=== PATIENT | male | born 1975 | race Caucasian/White ===

== ENCOUNTER 2022-09-03 19:11 | Emergency (ER) | payer MEDICAID ==
[~2022-09-03] VITALS: Ht 162.6 cm; Wt 68.6 kg
[2022-09-03 20:18] LABS: COVID AG,FIA SOURCE NASAL SWAB
[2022-09-03] MEDS ORDERED: ACETAMINOPHEN 500 MG TABLET PO ONE (20:30)
[2022-09-03 20:41] LABS: INFLUENZA TYPE A NEGATIVE FOR TYPE A (NEGATIVE); INFLUENZA TYPE B NEGATIVE FOR TYPE B (NEGATIVE)
[2022-09-03] MEDS ORDERED: BENZ-70 PO ×2 (21:00→22:46)
[2022-09-03] MEDS ORDERED: ACET-66 PO (21:00)
[2022-09-03] MEDS ORDERED: IBUP-2070 PO (21:00)
[2022-09-03 21:09] VITALS: BP 118/70
== END 2022-09-03 21:16 | disposition home or self-care (01) ==
LOC: EMS 19:16
DX: J06.9 Acute upper respiratory infection, unspecified (principal); Z20.822 Contact with and (suspected) exposure to COVID-19; F17.210 Nicotine dependence, cigarettes, uncomplicated; Z28.311 Partially vaccinated for COVID-19
CPT/HCPCS: 71045; 87804; 99284